=== PATIENT | male | born 2000 | race Caucasian/White ===

== ENCOUNTER 2019-01-14 16:22 | Emergency (ER) | payer OTHER ==
[~2019-01-14] VITALS: Ht 190.5 cm; Wt 63.0 kg
--- NOTE | 2019-01-14 16:50 | NUR ---
DIRECTOR BLOOD BANK: PT TO ROOM, FROM KEKE ROSALES.
[2019-01-14 17:00] LABS: BASOPHILS # (AUTO) 0.02 x10^3/uL (0-0.3); BASOPHILS % (AUTO) 0 % (0-1); EOSINOPHILS # (AUTO) 0.04 x10^3/uL (0-0.8); EOSINOPHILS % (AUTO) 0 % (1-7); LYMPHOCYTES # (AUTO) 1.99 x10^3/uL (1-6.1); LYMPHOCYTES % (AUTO) 14 % (22-44); MD NO; MEAN CORPUSCULAR HEMOGLOBIN 31.7 pg (27.5-34.5); MEAN CORPUSCULAR HGB CONC 33.5 g/dL (33.2-36.2); MEAN CORPUSCULAR VOLUME 94.5 fL (81-97); MEAN PLATELET VOLUME 8.1 fL (7.4-10.4); MONOCYTES % (AUTO) 6 % (2-9); NEUTROPHILS # (AUTO) 11.39 x10^3/uL (1.8-8.0); NEUTROPHILS % (AUTO) 79 % (42-75); PLATELET COUNT 286 x10^3/uL (130-400); RED BLOOD COUNT 5.17 x10^6/uL (4.38-5.82); RED CELL DISTRIBUTION WIDTH 14.1 % (9.4-14.8)
[2019-01-14] MEDS ORDERED: SODIUM CHLORIDE FLUSH 10ML SYR IVF ONE (17:00)
--- NOTE | 2019-01-14 17:02 | NUR ---
PT AMBULATORY TO ROOM. NADN. TACHYCARDIC. PAIN 3/10 IN LEFT AND RIGHT LOWER ABDOMEN- STATES IT FEELS LIKE HE'S CONSTIPATED. STATES HE HAS HAD DIARRHEA 4-6 TIMES IN THE LAST 36 HOURS. DENIES NEEDS. CALL LIGHT IN REACH.
[2019-01-14 17:06] LABS: ALANINE AMINOTRANSFERASE 29 U/L (12-78); ALBUMIN 4.3 g/dL (3.4-5.0); ANION GAP 7 mmol/L (5-15); CALCIUM 9.5 mg/dL (8.5-10.1); CHLORIDE 107 mmol/L (98-107); CREATININE 0.95 mg/dL (0.7-1.3)
[2019-01-14 17:08] LABS: ALKALINE PHOSPHATASE 62 U/L (45-117); BILIRUBIN,TOTAL 0.4 mg/dL (0.2-1.0); TOTAL PROTEIN 7.7 g/dL (6.4-8.2)
--- NOTE | 2019-01-14 17:41 | NUR ---
URINE COLLECTED AT THIS TIME. JOAQUÍNN. VSS. CALL LIGHT IN REACH.
[2019-01-14 17:53] LABS: MICROSCOPIC NOT IND
[2019-01-14 17:55] LABS: CULTURE INDICATED? NO
--- NOTE | 2019-01-14 18:55 | NUR ---
REPORT GIVEN TO RICHIE MESA.
--- NOTE | 2019-01-14 18:57 | NUR ---
REPORT RECEIVED FROM CLARISSA QUIROZ.
[2019-01-14 19:05] VITALS: BP 127/78
--- NOTE | 2019-01-14 19:17 | NUR ---
PT GIVEN DC INSTRUCTIONS AND SCRIPTS. PT EDUCATED REGARDING DC MEDICATIONS. PT'S AOX4. RESPS EVEN AND UNLABORED. PT AMB TO DC WITH STEADY GAIT. NO ACUTE DISTRESS AT DC.
== END 2019-01-14 19:18 | disposition home or self-care (01) ==
LOC: ED 19:12
DX: R10.84 Generalized abdominal pain (principal); F17.200 Nicotine dependence, unspecified, uncomplicated
CPT/HCPCS: 36415; 80053; 81003; 83690; 85025; 93005; 99284